=== PATIENT | male | born 2000 | race Caucasian/White ===

== ENCOUNTER 2021-06-13 14:48 | Emergency (ER) | payer BC, SELFPAY ==
[2021-06-13 15:07] VITALS: BP 120/74; PULSE 68; RESP 14; TEMP 36.3; O2SAT 100
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
[2021-06-13 16:44] VITALS: BP 158/95; PULSE 64; RESP 18; O2SAT 100
== END 2021-06-13 16:44 | disposition home or self-care (01) ==
PROVIDERS: Emergency Provider General Practice
DX: S09.90XA Unspecified injury of head, initial encounter (principal); H11.31 Conjunctival hemorrhage, right eye; Y04.0XXA Assault by unarmed brawl or fight, initial encounter
CPT/HCPCS: 99282; A9270

== ENCOUNTER 2021-10-20 06:40 | Emergency (ER) | payer BC, SELFPAY ==
--- NOTE | ~2021-10-20 | CT_ITS ---
EXAMINATION: CT abdomen pelvis w con DATE: 10/20/2021 08:36 INDICATION: Left lower quadrant abdominal pain. Nausea and vomiting. TECHNIQUE: Computed tomography (CT) of the abdomen and pelvis was performed with 100 mL Omnipaque-350 intravenous contrast. Automated exposure control and iterative reconstruction technique were employe d. The dose-length product was 539.48 mGy-cm. COMPARISON: None FINDINGS: Lung bases are clear. Heart size is normal. No pericardial or pleural effusion. Liver, gallbladder, s pleen, pancreas, bilateral adrenal glands and kidneys are normal. Stomach is unremarkable. Bowels inc luding the appendix are normal. Bladder is normal. There is enhancement along the prosthetic urethra suspicious for urinary tract infection. No free intraperitoneal gas or fluid. No pathologically enlar ged abdominal or pelvic lymphadenopathy. Cystic change at the bilateral anterosuperior femoral head n nelli junctions which can be seen with cam-type femoroacetabular impingement. Bones are otherwise unrem arkable. IMPRESSION: 1. Enhancement along the prostatic urethra raising some concern for urinary tract infection. Correlat e with urinalysis. No other acute intra-abdominal/pelvic process. Reviewed, dictated and finalized at location A. IMPRESSION: 1. Enhancement along the prostatic urethra raising some concern for urinary tra ct infection. Correlate with urinalysis. No other acute intra-abdominal/pelvic process.
[2021-10-20 06:47] VITALS: BP 112/73; PULSE 79; RESP 16; TEMP 36.5; O2SAT 100
[2021-10-20 07:08] VITALS: BP 123/71; PULSE 67; RESP 16; O2SAT 100
--- NOTE | 2021-10-20 07:20 | PC.NURSE ---
BSSR given to day shift RN Lakia.
[2021-10-20 07:24] LABS: Basophils Absolute Auto 0.1 K/mm3 (0.0-0.1); Basophils Percent Auto 1.2 % (0.2-1.2); Eosinophils Absolute Auto 0.3 K/mm3 (0-0.3); Eosinophils Percent Auto 4.5 % (0-4.4); Hematocrit 46.6 % (42.0-52.0); Hemoglobin 15.7 g/dL (14.0-18.0); Immature Granulocyte Absolute 0.01 K/mm3 (0.00-0.031); Immature Granulocyte Percent A 0.2 % (0-0.5); Lymphocytes Absolute Auto 2.08 K/mm3 (0.9-3.2); Mean Corpuscular HGB Conc 33.7 g/dl (32-36); Mean Corpuscular Hemoglobin 30.5 pg (26-34); Mean Corpuscular Volume 90.5 fl (80-100); Mean Platelet Volume 9.4 fl (7.4-10.4); Monocytes Absolute Auto 0.6 K/mm3 (0.1-0.6); Monocytes Percent Auto 8.9 % (2.6-8.5); Neutrophils Absolute Auto 3.5 K/mm3 (1.3-6.7); Neutrophils Percent Auto 53.2 % (45.5-73.1); Platelet Count Result 293 k/mm3 (150-375); Red Blood Count 5.15 M/mm3 (4.6-6.20); Red Cell Distribution Width 12.6 % (11.5-14.5); White Blood Count 6.5 K/mm3 (4.5-10.0)
--- NOTE | 2021-10-20 07:25 | ED.ABDPAIN ---
HPI - Abdominal Pain General Chief Complaint: Abdominal Pain Stated Complaint: vomiting blood Time Seen by Provider: 10/20/21 06:57 Source: patient History of Present Illness HPI narrative: 21-year-old male presented to the emergency department for evaluation of left lower quadrant pain. Patient states yesterday at 9 AM he began having some left lower quadrant abdominal pain. Patient describes the pain as sharp and cramping. Patient states approximately noon he began having intermittent vomiting. Patient states the vomiting continued for approximately the next 12 hours. Patient states that he did have some streaked blood in the vomit. Patient denies throwing up only blood. Patient's plan at this time is the pain. Patient denies any prior history of abdominal surgeries. Patient states he has been taking Tylenol PM for the pain in an attempt to sleep last night patient states this was unsuccessful. Patient denies taking frequent NSAIDs. Patient denies any alcohol use. Related Data Allergies Allergy/AdvReac Type Severity Reaction Status Date / Time No Known Allergies Allergy Verified 10/20/21 07:12 Review of Systems Review of Systems: CONSTITUTIONAL: Denies fever, chills, or sweats. EYES: Denies visual changes, redness, or discharge. ENT: Denies rhinorrhea, congestion, sore throat, or otalgia. CARDIOVASCULAR: Denies chest pain, palpitations, or edema. RESPIRATORY: Denies cough or dyspnea. GASTROINTESTINAL: Left lower quadrant abdominal pain with started nausea and vomiting GENITOURINARY: Denies dysuria or hematuria. SKIN: Denies rash or itching. MUSCULOSKELETAL: Denies back pain, joint pain, or myalgia. NEUROLOGIC: Denies headache, numbness, or weakness. PMFSH Past Medical History Medical History (Updated 10/20/21 @ 09:18 by Gus Isaacs MD) Patient denies medical problems Surgical History Surgical History (Updated 06/13/21 @ 16:24 by Cristina Mcmanus MD) No pertinent past surgical history Social History Social History (Updated 06/13/21 @ 16:24 by Cristina Mcmanus MD) Substance use type: marijuana Exam Narrative: APPEARANCE: Well appearing, no pain, no distress, well-nourished. HEAD: normocephalic, atraumatic. EYES: PERRLA/EOMI, conjunctivae clear. NOSE: Normal no drainage NECK: Supple. No adenopathy, no masses. RESPIRATORY: Airway patent, respirations nonlabored. Clear to auscultation bilaterally, no rales, rhonchi, wheezing. CARDIOVASCULAR: Regular rate and rhythm without murmurs rubs or gallops. ABDOMINAL: Left lower quadrant and suprapubic tenderness to palpation. Normal bowel sounds. No rebound MUSCULOSKELETAL: Moves all extremities. Strength/ROM intact, No edema, No calf tenderness. NEURO: Alert. Cranial nerves II through XII intact. Grossly intact SKIN: Warm, dry. Normal Color Course Course Emergency Course: Patient had no further emesis in the emergency department. Patient's blood counts are well-appearing. Patient does have evidence of a urinary tract infection. Patient does describe some difficulty starting urination but patient did not have any urinary retention here in the emerge department. Patient denies any high risk sexual behavior. Patient denies any penile discharge. Patient was treated with 500 mg IM Rocephin and patient was started on doxycycline. GC chlamydia off of the urine is pending. Patient was started on Flomax due to the possibility of underlying enlarged prostate. Patient was also encouraged to have close follow-up with urology. Vital Signs Vital signs: Vital Signs Temperature 97.7 F 10/20/21 06:47 Pulse Rate 79 10/20/21 06:47 Respiratory Rate 16 10/20/21 06:47 Blood Pressure 112/73 10/20/21 06:47 Pulse Oximetry 100 10/20/21 06:47 Temperature 97.7 F 10/20/21 06:47 Pulse Rate 99 10/20/21 10:10 Respiratory Rate 14 10/20/21 10:10 Blood Pressure 123/88 10/20/21 10:10 Pulse Oximetry 97 10/20/21 10:10 MDM - Abdominal Pa
[2021-10-20 07:32] LABS: Lactic Acid Reflex 0.8 mmol/L (0.7-2.1)
[2021-10-20 07:33] LABS: Prothrombin Time 13.2 Seconds (11.1-14.7)
[2021-10-20] MEDS: ONDANSETRON INJ 4 MG/2 ML VIAL IV PUSH (07:37)
[2021-10-20] MEDS: SODIUM CHLORIDE 0.9% IV 1,000 ML 999 ML IV CONT (07:37)
[2021-10-20] MEDS: HYDROmorphone HCL INJ (*CRX) 1 MG/ML SYR 0.5 MG IV PUSH (07:40)
[2021-10-20 07:59] LABS: Add Urine Microscopic? YES; Appearance Urine Cloudy (Clear); Bilirubin Urine Negative (Negative); Blood Urine Negative (Negative); Color Urine Yellow (Yellow); Glucose Urine UA Negative (Negative); Ketones Urine 1+ mg/dL (Negative); Leukocyte Esterase Ur 2+ LEU/UL (Negative); Mucus Urine Rare /lpf; Nitrate Urine Negative (Negative); Protein Urine 1+ mg/dL (Negative); Specific Grav Ur 1.029 (1.001-1.035); Squamous Epithelial Cell Urine Rare /hpf (Few); WBC Urine >75 /hpf
[2021-10-20 08:01] LABS: Alanine Aminotransferase 28 U/L (4-50); Albumin Level 4.8 g/dL (3.5-5.1); Alkaline Phosphatase 90 U/L (38-126); Anion Gap 7 mmol/L (8-16); Aspartate Amino Transferase 35 U/L (17-59); Bilirubin,Total 1.1 mg/dL (0.2-1.3); Blood Urea Nitrogen 10 mg/dL (9-20); Calcium 9.3 mg/dL (8.4-10.2); Carbon Dioxide 27 mmol/L (22-30); Chloride 107 mmol/L (98-107); Estimated CRCL calculation 146 ml/min; Estimated Glomerular Filt Rate > 60; Glucose 80 mg/dL (65-110); Lipase 79 U/L (23-300); Potassium 3.8 mmol/L (3.4-5.0); Sodium 141 mmol/L (137-145)
[2021-10-20] MEDS: cefTRIAXone 1 GM VIAL 0.5 GM IM (09:33)
[2021-10-20] MEDS: DOXYCYCLINE HYCLATE 100 MG TABLET PO (09:33)
[2021-10-20] MEDS: KETOROLAC 15 MG/ML VIAL (*BKC) IV PUSH (09:33)
[2021-10-20] MEDS: PHENAZOPYRIDINE HCL 100 MG TABLET PO (09:34)
[2021-10-20 09:35] VITALS: BP 117/77; PULSE 66; RESP 14; O2SAT 97
--- NOTE | 2021-10-20 09:39 | PC.NURSE ---
added on STI tests to UA that is in lab
[2021-10-20 10:10] VITALS: BP 123/88; PULSE 99; RESP 14; O2SAT 97
[2021-10-20] MEDS: TAMSULOSIN HCL 0.4 MG CAPSULE PO (10:18)
== END 2021-10-20 10:10 | disposition home or self-care (01) ==
PROVIDERS: Emergency Provider Emergency Medicine
DX: N39.0 Urinary tract infection, site not specified (principal)
CPT/HCPCS: 36415; 74177; 80053; 81001; 83605; 83690; 85025; 85610; 87086; 87491; 87591; 96361; 96372; 96374; 96375; 99284; A9270; J0696; J1170; J1885; J2405; J7030; Q9967

== ENCOUNTER 2024-02-29 20:21 | Emergency (ER) | payer BC, SELFPAY ==
--- NOTE | ~2024-02-29 | XR_ITS ---
EXAMINATION: XR chest 1V portable Exam Date/Time: 02/29/2024 20:43 CDT HISTORY: cp, sob, weakness Comparison: None. RESULT: Lines, tubes, and devices: None. Lungs and pleura: Clear. Cardiomediastinal silhouette: Unremarkable. Other: No acute osseous or upper abdominal finding. IMPRESSION: No acute cardiopulmonary process. Reviewed, dictated and finalized at location K.
--- NOTE | ~2024-02-29 | CT_ITS ---
EXAMINATION: CTA chest PE abdomen pel DATE: 02/29/2024 22:30 INDICATION: chest pain, abdominal pain, eval for PE TECHNIQUE: Computed tomography angiography (CTA) of the chest was performed with 100 mL Omnipaque-350 intravenous contrast timed to evaluate the pulmonary arteries, followed by portal venous phase imagi ng of the abdomen and pelvis. Coronal maximum intensity projection 3D-reconstructions were created by the technologist. The dose-length product (DLP) was 1689.88 mGy-cm. Automated exposure control and i terative reconstruction technique were employed. COMPARISON: CT abdomen pelvis 10/20/2021. FINDINGS: CHEST: Lung parenchyma and airways: Clear. Pleura: Unremarkable. Thoracic inlet, axillae and chest wall: No thyroid or soft tissue mass. Thoracic aorta: No significant dilation. No dissection. Mediastinum: Normal. Heart and pericardium: Normal. Coronary artery calcifications: Absent. Thoracic bones: No acute osseous finding. Pulmonary arteries: Study quality: Adequate. No pulmonary emboli detected. ABDOMEN/PELVIS: Liver: Normal. Biliary/Gallbladder: Gallbladder is contracted. No bile duct dilation. Pancreas: No mass or duct dilation. Spleen: Normal. Adrenals:No mass. Kidneys: No suspicious mass, obstructing stone, or hydronephrosis. GI tract: No small or large bowel dilation. Normal appendix. Mesentery/Peritoneum: No ascites, mass, or free air. Retroperitoneum: No mass. Pelvis: Pelvic organs are within normal limits. Soft Tissues: Soft tissues and body wall unremarkable. Abdominopelvic bones: No acute osseous finding. IMPRESSION: No CT evidence of acute pulmonary embolus. No acute process detected in the chest, abdomen, or pelvis. Reviewed, dictated and finalized at location K.
[2024-02-29 20:22] VITALS: BP 119/64; PULSE 73; RESP 14; O2SAT 99
--- NOTE | 2024-02-29 20:33 | ECG_ITS ---
Test Date: 2024-02-29 20:38:45 Measurements Intervals [place] Rate: 69 P: 16 NH: 151 QRS: 77 QRSD: 99 T: 44 QT: 364 QTc: 392 Interpretive Statements SINUS RHYTHM EARLY REPOLARIZATION [ST ELEVATION WITH NORMALLY INFLECTED T-WAVE] No previous ECG available for comparison Electronically Signed On 03-01-2024 14:39:39 CDT by Romulo Du M.D.
[2024-02-29 21:00] LABS: Basophils Absolute Auto 0.1 K/mm3 (0.0-0.1); Basophils Percent Auto 1.1 % (0.2-1.2); Eosinophils Absolute Auto 0.3 K/mm3 (0-0.3); Eosinophils Percent Auto 2.8 % (0-4.4); Hematocrit 43.2 % (42.0-52.0); Hemoglobin 15.2 g/dL (14.0-18.0); Immature Granulocyte Absolute 0.02 K/mm3 (0.00-0.031); Immature Granulocyte Percent A 0.2 % (0-0.5); Lymphocytes Absolute Auto 2.27 K/mm3 (0.9-3.2); Lymphocytes Percent Auto 25.4 % (18.3-44.2); Mean Corpuscular HGB Conc 35.2 g/dl (32-36); Mean Corpuscular Hemoglobin 31.5 pg (26-34); Mean Corpuscular Volume 89.4 fl (80-100); Mean Platelet Volume 9.1 fl (7.4-10.4); Monocytes Absolute Auto 0.8 K/mm3 (0.1-0.6); Monocytes Percent Auto 9.1 % (2.6-8.5); Neutrophils Absolute Auto 5.5 K/mm3 (1.3-6.7); Neutrophils Percent Auto 61.4 % (45.5-73.1); Platelet Count Result 296 k/mm3 (150-375); Red Blood Count 4.83 M/mm3 (4.6-6.20); Red Cell Distribution Width 12.7 % (11.5-14.5); White Blood Count 8.9 K/mm3 (4.5-10.0)
[2024-02-29 21:23] LABS: INR 0.9; Partial Thromboplastin Time 29.1 Seconds (22.3-36.8); Prothrombin Time 12.3 Seconds (11.1-14.7)
[2024-02-29 21:52] LABS: Alanine Aminotransferase 28 U/L (6-50); Albumin Level 4.6 g/dL (3.5-5.1); Alkaline Phosphatase 92 U/L (38-126); Anion Gap 12 mmol/L (4-12); Aspartate Amino Transferase 40 U/L (17-59); Bilirubin,Total 0.7 mg/dL (0.2-1.3); Blood Urea Nitrogen 12 mg/dL (9-20); Calcium 9.5 mg/dL (8.4-10.2); Carbon Dioxide 22 mmol/L (22-30); Chloride 104 mmol/L (98-107); Estimated CRCL calculation 155 ml/min; Estimated Glomerular Filt Rate > 60; Glucose 82 mg/dL (65-110); Lipase 56 U/L (23-300); Potassium 4.3 mmol/L (3.4-5.0); Sodium 138 mmol/L (137-145)
[2024-02-29 22:04] LABS: Troponin I < 0.012 ng/mL (0.000-0.034)
[2024-02-29 22:41] VITALS: BP 120/70; PULSE 67; RESP 15; O2SAT 100
[2024-02-29 23:05] LABS: Add Urine Microscopic? NO; Appearance Urine Clear (Clear); Bilirubin Urine Negative (Negative); Blood Urine Negative (Negative); Color Urine Yellow (Yellow); Glucose Urine UA Negative (Negative); Ketones Urine Negative (Negative); Leukocyte Esterase Ur Negative LEU/UL (Negative); Nitrate Urine Negative (Negative); Protein Urine Negative (Negative); Specific Grav Ur 1.016 (1.001-1.035); pH Urine 8.5 (5.0-9.0)
[2024-02-29 23:41] LABS: Influenza A QL RT-PCR Negative (Negative); Influenza B QL RT-PCR Negative (Negative); RSV RNA, RT-PCR Negative (Negative); SARS-CoV-2 RNA PCR Negative (Negative)
--- NOTE | 2024-03-01 00:17 | ED.GENADULT ---
HPI - General Adult General Chief complaint: GI Bleed Stated complaint: CP, WEAKNESS, EPISTAXIS, GI BLEED? Time Seen by Provider: 02/29/24 20:50 History of Present Illness HPI narrative: Patient is a 23-year-old gentleman who presents emergency department with chief complaint of nose bleed. Patient reports that he was at chest not started having a nose bleed then vomited some blood patient reports he then felt chest pain and reports he felt very lightheaded. The patient also recently states that he started back on his medications and has had some constipation. Related Data Allergies Allergy/AdvReac Type Severity Reaction Status Date / Time No Known Allergies Allergy Verified 10/20/21 07:12 Review of Systems Review of Systems: A 10 system review of systems was completed on the patient and is negative except for what is stated in the HPI. Nursing and ancillary documentation was reviewed. [facility] Past Medical History Medical History Patient denies medical problems Surgical History Surgical History No pertinent past surgical history Social History Social History Substance use type: marijuana Exam Narrative: GENERAL: Well-appearing, well-nourished, and in no acute distress. HEAD: Normocephalic, atraumatic. EYES: PERRLA and EOMI. ENT: Nares clear, no rhinorrhea or epistaxis. Mucous membranes moist. No active bleeding NECK: Supple. CHEST: Clear to auscultation. No respiratory distress. HEART: Regular rate and rhythm. No murmur heard. Normal peripheral pulses. ABDOMEN: Soft, nontender, nondistended, normal active bowel sounds. : Guaiac-negative stool EXTREMITIES: Normal range of motion. No edema. SKIN: Warm, dry, no rash. NEURO: No focal deficits. Alert and oriented x3. PSYCH: Normal mood and affect. Course Vital Signs Vital signs: Vital Signs Pulse Rate 73 02/29/24 20:22 Respiratory Rate 14 02/29/24 20:22 Blood Pressure 119/64 02/29/24 20:22 Pulse Oximetry 99 02/29/24 20:22 Pulse Rate 67 02/29/24 22:41 Respiratory Rate 15 02/29/24 22:41 Blood Pressure 120/70 02/29/24 22:41 Pulse Oximetry 100 02/29/24 22:41 Medical Decision Making MDM Narrative Medical decision making narrative: Differential diagnosis includes epistaxis, GI bleeding, Patient has no active epistaxis at this time CT scan of the chest with abdomen pelvis showed no acute findings. Laboratory studies were obtained had a hemoglobin of 15.2 initial troponin was negative repeat troponin was negative COVID flu and RSV were negative EKG showed no acute ischemic changes Vital Signs Vital Signs: Vital Signs Pulse Rate 73 02/29/24 20:22 Respiratory Rate 14 02/29/24 20:22 Blood Pressure 119/64 02/29/24 20:22 Pulse Oximetry 99 02/29/24 20:22 Pulse Rate 67 02/29/24 22:41 Respiratory Rate 15 02/29/24 22:41 Blood Pressure 120/70 02/29/24 22:41 Pulse Oximetry 100 02/29/24 22:41 Lab Data 02/29/24 20:56 02/29/24 20:56 Labs: Lab Results 02/29/24 02/29/24 02/29/24 Range/Units 20:56 22:54 23:47 WBC 8.9 (4.5-10.0) K/mm3 RBC 4.83 (4.6-6.20) M/mm3 Hgb 15.2 (14.0-18.0) g/dL Hct 43.2 (42.0-52.0) % MCV 89.4 (80-100) fl MCH 31.5 (26-34) pg MCHC 35.2 (32-36) g/dl RDW 12.7 (11.5-14.5) % Plt Count 296 (150-375) k/mm3 MPV 9.1 (7.4-10.4) fl Immature Gran % (Auto) 0.2 (0-0.5) % Neut % (Auto) 61.4 (45.5-73.1) % Lymph % (Auto) 25.4 (18.3-44.2) % [place] % (Auto) 9.1 H (2.6-8.5) % Eos % (Auto) 2.8 (0-4.4) % Baso % (Auto) 1.1 (0.2-1.2) % Lymph # (Auto) 2.27 (0.9-3.2) K/mm3 [place] # (Auto) 0.8 H (0.1-0.6) K/mm3 Eos # (Auto) 0.3 (0-0.3) K/mm3 Baso # (Auto) 0.1
[2024-03-01 00:41] LABS: Troponin I < 0.012 ng/mL (0.000-0.034)
[2024-03-01 01:20] VITALS: BP 126/78; PULSE 72; RESP 15; TEMP 36.9; O2SAT 100
== END 2024-03-01 01:22 | disposition home or self-care (01) ==
PROVIDERS: Emergency Provider Emergency Medicine
DX: R04.0 Epistaxis (principal); R07.9 Chest pain, unspecified; Z20.822 Contact with and (suspected) exposure to COVID-19
CPT/HCPCS: 36415; 71045; 71275; 74177; 80053; 81003; 83690; 84484; 85025; 85610; 85730; 87637; 93005; 99284; Q9967

== ENCOUNTER 2024-03-10 08:10 | Emergency (ER) | payer BC, SELFPAY ==
--- NOTE | ~2024-03-10 | CT_ITS ---
EXAMINATION: CT brain wo con DATE: 03/10/2024 08:38 INDICATION: Head injury. TECHNIQUE: Computed tomography (CT) of the head was performed without intravenous contrast. The mA wa s adjusted according to patient size. Iterative reconstruction technique was employed. The dose-lengt h product was 605.33 mGy-cm. COMPARISON: None FINDINGS: There is no intracranial hemorrhage, acute infarction, or abnormal intracranial mass lesion . The ventricles are normal in size. The orbits are normal. There is mild mucosal thickening in the p aranasal sinuses. The mastoid air cells are normal. There is cerumen in left external artery canal. IMPRESSION: 1. Normal brain. Reviewed, dictated and finalized at location A. IMPRESSION: 1. Normal brain.
--- NOTE | ~2024-03-10 | CT_ITS ---
EXAMINATION: CT cervical spine wo con DATE: 03/10/2024 08:38 INDICATION: Head injury. TECHNIQUE: Computed tomography (CT) of the cervical spine was performed without intravenous contrast. Automated exposure control and iterative reconstruction technique were employed. The dose-length pro duct was 419.88 mGy-cm. COMPARISON: None FINDINGS: There is 8 degrees levocurvature of cervical spine. Vertebral body heights are normal. Inte rvertebral disc heights are normal. The following disc levels are specifically discussed: C2-C3: There is no uncovertebral joint osteoarthritis. There is mild bilateral facet joint osteoarthr itis. There is no neural foraminal stenosis. There is no central canal stenosis. C3-C4: There is mild left uncovertebral joint osteoarthritis. There is no facet joint osteoarthritis. There is no neural foraminal stenosis. There is no central canal stenosis. C4-C5: There is no uncovertebral joint osteoarthritis. There is mild bilateral facet joint osteoarthr itis. There is no neural foraminal stenosis. There is no central canal stenosis. C5-C6: There is no uncovertebral joint osteoarthritis. There is no facet joint osteoarthritis. There is no neural foraminal stenosis. There is no central canal stenosis. C6-C7: There is no uncovertebral joint osteoarthritis. There is no facet joint osteoarthritis. There is no neural foraminal stenosis. There is no central canal stenosis. C7-T1: There is no uncovertebral joint osteoarthritis. There is mild bilateral facet joint osteoarthr itis. There is no neural foraminal stenosis. There is no central canal stenosis. IMPRESSION: 1. No fracture. Reviewed, dictated and finalized at location A. IMPRESSION: 1. No fracture.
[2024-03-10 08:13] VITALS: BP 132/76; PULSE 74; RESP 15; TEMP 36.6; O2SAT 99
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
== END 2024-03-10 08:58 | disposition home or self-care (01) ==
PROVIDERS: Emergency Provider Emergency Medicine
DX: S09.90XA Unspecified injury of head, initial encounter (principal); W01.0XXA Fall on same level from slipping, tripping and stumbling without subsequent striking against object, initial encounter
CPT/HCPCS: 70450; 72125; 99284

== ENCOUNTER 2024-03-30 21:40 | Emergency (ER) | payer BC, SELFPAY ==
--- NOTE | ~2024-03-30 | XR_ITS ---
EXAMINATION: XR chest 2V DATE: 03/30/2024 22:20 INDICATION: Syncope. TECHNIQUE: Frontal and lateral views of the chest were obtained. COMPARISON: Chest single view 02/29/2024, chest CT 02/29/2024 FINDINGS: There is no pneumonia, pleural effusion, or pneumothorax. The heart size is normal. IMPRESSION: 1. No acute cardiopulmonary disease. Reviewed, dictated and finalized at location A.
[2024-03-30 22:04] VITALS: BP 107/83; PULSE 87; RESP 14; TEMP 36.4; O2SAT 99
--- NOTE | 2024-03-31 01:46 | ECG_ITS ---
Test Date: 2024-03-31 01:48:09 Measurements Intervals [place] Rate: 72 P: 31 MA: 168 QRS: 70 QRSD: 98 T: 56 QT: 366 QTc: 402 Interpretive Statements SINUS RHYTHM ST ELEVATION IN DIFFUSE LEADS, PROBABLY EARLY REPOLARIZATION BORDERLINE ECG Compared to ECG 02/29/2024 20:38:45 NO SIGNIFICANT CHANGE Electronically Signed On 03-31-2024 07:40:59 CDT by Lawrence Riggs D.O.
[2024-03-31 02:13] LABS: Basophils Absolute Auto 0.1 K/mm3 (0.0-0.1); Basophils Percent Auto 0.7 % (0.2-1.2); Eosinophils Absolute Auto 0.1 K/mm3 (0-0.3); Eosinophils Percent Auto 1.4 % (0-4.4); Hematocrit 42.2 % (42.0-52.0); Hemoglobin 14.1 g/dL (14.0-18.0); Immature Granulocyte Absolute 0.03 K/mm3 (0.00-0.031); Immature Granulocyte Percent A 0.3 % (0-0.5); Lymphocytes Absolute Auto 1.76 K/mm3 (0.9-3.2); Lymphocytes Percent Auto 20.3 % (18.3-44.2); Mean Corpuscular HGB Conc 33.4 g/dl (32-36); Mean Corpuscular Hemoglobin 30.3 pg (26-34); Mean Corpuscular Volume 90.8 fl (80-100); Mean Platelet Volume 9.1 fl (7.4-10.4); Monocytes Absolute Auto 0.7 K/mm3 (0.1-0.6); Monocytes Percent Auto 7.5 % (2.6-8.5); Neutrophils Percent Auto 69.8 % (45.5-73.1); Platelet Count Result 332 k/mm3 (150-375); Red Blood Count 4.65 M/mm3 (4.6-6.20); Red Cell Distribution Width 12.5 % (11.5-14.5); White Blood Count 8.7 K/mm3 (4.5-10.0)
[2024-03-31 02:30] LABS: Alanine Aminotransferase 24 U/L (6-50); Albumin Level 4.5 g/dL (3.5-5.1); Alkaline Phosphatase 112 U/L (38-126); Anion Gap 13 mmol/L (4-12); Aspartate Amino Transferase 46 U/L (17-59); Bilirubin,Total 1.2 mg/dL (0.2-1.3); Blood Urea Nitrogen 9 mg/dL (9-20); Calcium 9.3 mg/dL (8.4-10.2); Carbon Dioxide 20 mmol/L (22-30); Chloride 102 mmol/L (98-107); Estimated CRCL calculation 154 ml/min; Estimated Glomerular Filt Rate > 60; Glucose 97 mg/dL (65-110); Potassium 3.6 mmol/L (3.4-5.0); Sodium 135 mmol/L (137-145)
--- NOTE | 2024-03-31 04:50 | ED.GENADULT ---
HPI - General Adult General Chief complaint: Syncope Stated complaint: nose bleed passed out Time Seen by Provider: 03/31/24 04:05 History of Present Illness HPI narrative: This is a 23-year-old male presenting with nosebleed. The nosebleed occurred while he was at work. When he saw the bloody became lightheaded. He then came to the ED to be evaluated. Patient also says he has had a sore throat for 2 days. No fevers. No trouble swallowing. No nausea vomiting diarrhea. Related Data Allergies Allergy/AdvReac Type Severity Reaction Status Date / Time No Known Allergies Allergy Verified 03/10/24 08:12 [facility] Past Medical History Medical History Patient denies medical problems Surgical History Surgical History No pertinent past surgical history Social History Social History Substance use type: marijuana Exam Narrative: APPEARANCE: No apparent distress. Head: Posterior throat is mildly erythematous without exudates or tonsillar edema EYES: EOMI, NOSE: Atraumatic, no bleeding, no obvious excoriations in the nose NECK: Trachea midline RESPIRATORY: No increased rate of breathing CARDIOVASCULAR: RRR, ABDOMINAL: Non-distended MUSCULOSKELETAl: No obvious deformities NEURO: Alert. Moving 4/4 extremities SKIN:: Warm, dry. Normal color PSYCHIATRIC: Normal affect Course Vital Signs Vital signs: Vital Signs Temperature 97.6 F 03/30/24 22:04 Pulse Rate 87 03/30/24 22:04 Respiratory Rate 14 03/30/24 22:04 Blood Pressure 107/83 03/30/24 22:04 Pulse Oximetry 99 03/30/24 22:04 Temperature 97.6 F 03/30/24 22:04 Pulse Rate 87 03/30/24 22:04 Respiratory Rate 14 03/30/24 22:04 Blood Pressure 107/83 03/30/24 22:04 Pulse Oximetry 99 03/30/24 22:04 Medical Decision Making MDM Narrative Medical decision making narrative: -Course: 23-year-old male presenting with abscess status epistaxis and vasovagal episode. Nose bleeding has resolved. Patient was educated on how to control bleeding and when to return to the ED. patient has mild pharyngitis. Treat with dexamethasone and Motrin. Discharged with work note return precautions. -DDX includes but is not limited to: Epistaxis, vasovagal syncope, viral pharyngitis -Independent interpretation of studies: Labs reviewed -Interventions: Dexamethasone, Motrin -Shared decision making / Disposition: Discharge -RX Motrin Vital Signs Vital Signs: Vital Signs Temperature 97.6 F 03/30/24 22:04 Pulse Rate 87 03/30/24 22:04 Respiratory Rate 14 03/30/24 22:04 Blood Pressure 107/83 03/30/24 22:04 Pulse Oximetry 99 03/30/24 22:04 Temperature 97.6 F 03/30/24 22:04 Pulse Rate 87 03/30/24 22:04 Respiratory Rate 14 03/30/24 22:04 Blood Pressure 107/83 03/30/24 22:04 Pulse Oximetry 99 03/30/24 22:04 Lab Data 03/31/24 01:53 03/31/24 01:53 Labs: Lab Results 03/31/24 Range/Units 01:53 WBC 8.7 (4.5-10.0) K/mm3 RBC 4.65 (4.6-6.20) M/mm3 Hgb 14.1 (14.0-18.0) g/dL Hct 42.2 (42.0-52.0) % MCV 90.8 (80-100) fl MCH 30.3 (26-34) pg MCHC 33.4 (32-36) g/dl RDW 12.5 (11.5-14.5) % Plt Count 332 (150-375) k/mm3 MPV 9.1 (7.4-10.4) fl Immature Gran % (Auto) 0.3 (0-0.5) % Neut % (Auto) 69.8 (45.5-73.1) % Lymph % (Auto) 20.3 (18.3-44.2) % Borden % (Auto) 7.5 (2.6-8.5) % Eos % (Auto) 1.4 (0-4.4) % Baso % (Auto) 0.7 (0.2-1.2) % Lymph # (Auto) 1.76 (0.9-3.2) K/mm3 Borden # (Auto) 0.7 H (0.1-0.6) K/mm3 Eos # (Auto) 0.1 (0-0.3) K/mm3 Baso # (Auto) 0.1 (0.0-0.1) K/mm3 Abs Immat Gran (auto) 0.03 (0.00-0.031) K/mm3 Absolute Neuts (auto) 6.0 (1.3-6.7) K/mm3 Absolute Nucleated RBC 0.000 (0.0-0.012) K/mm3 Nucleated RBC % 0.0 (0.0-0.2) % Sodium 135 L (
[2024-03-31 04:56] VITALS: BP 128/85; PULSE 63; RESP 14; TEMP 36.8; O2SAT 100
[2024-03-31] MEDS: IBUPROFEN 400 MG TABLET 800 MG PO (04:57)
[2024-03-31] MEDS: dexAMETHasone SOD PHOS INJ 10 MG/ML 1 ML VIAL IM (04:57)
== END 2024-03-31 05:15 | disposition home or self-care (01) ==
PROVIDERS: Emergency Provider Emergency Medicine
DX: R55 Syncope and collapse (principal); R04.0 Epistaxis; J02.9 Acute pharyngitis, unspecified
CPT/HCPCS: 36415; 71046; 80053; 85025; 93005; 96372; 99284; A9270; J1100